=== PATIENT | female | born 1955 | race Caucasian/White ===

== ENCOUNTER → 2023-10-26 16:33 | Outpatient (REF) | payer MEDICARE, SELFPAY | LOC: PAVMRI 16:33 | PROVIDERS: ATTENDING PHYSICIAN Physical Medicine & Rehabilitation; FAMILY PHYSICIAN Internal Medicine | DX: M54.14 Radiculopathy, thoracic region (principal) | CPT/HCPCS: 72146 ==

== ENCOUNTER → 2023-12-22 16:21 | Outpatient (REF) | payer MEDICARE, SELFPAY | LOC: PAVMRI 16:21 | PROVIDERS: ATTENDING PHYSICIAN Physician Assistant Surgical; FAMILY PHYSICIAN Internal Medicine | DX: M79.661 Pain in right lower leg (principal); M25.571 Pain in right ankle and joints of right foot | CPT/HCPCS: 73718; 73721 ==

== ENCOUNTER → 2024-03-15 14:17 | Outpatient (REF) | payer MEDICARE, SELFPAY | LOC: WDC 14:17 | PROVIDERS: ATTENDING PHYSICIAN Surgery; FAMILY PHYSICIAN Internal Medicine | DX: Z12.31 Encounter for screening mammogram for malignant neoplasm of breast (principal) | CPT/HCPCS: 77063; 77067 ==

== ENCOUNTER → 2024-10-04 15:29 | Outpatient (REF) | payer MEDICARE, SELFPAY | LOC: MRI 3T 15:29 | PROVIDERS: ATTENDING PHYSICIAN Surgery; FAMILY PHYSICIAN Internal Medicine | DX: R92.2 Inconclusive mammogram (principal); D05.01 Lobular carcinoma in situ of right breast | CPT/HCPCS: 77049; A9585 ==

== ENCOUNTER → 2024-10-17 14:24 | Outpatient (REF) | payer MEDICARE, SELFPAY | LOC: WDC 14:24 | PROVIDERS: ATTENDING PHYSICIAN Nurse Practitioner Adult Health; FAMILY PHYSICIAN Internal Medicine | DX: R92.8 Other abnormal and inconclusive findings on diagnostic imaging of breast (principal) | CPT/HCPCS: 76642 ==

== ENCOUNTER → 2024-12-14 10:44 | Outpatient (REF) | payer MEDICARE, SELFPAY | LOC: PAVMRI 10:44 | PROVIDERS: ATTENDING PHYSICIAN Nurse Practitioner Adult Health; FAMILY PHYSICIAN Internal Medicine | DX: R92.8 Other abnormal and inconclusive findings on diagnostic imaging of breast (principal) | CPT/HCPCS: 88305; 19085; 77021; 88341; 88342; A4648; A9585 ==

== ENCOUNTER → 2025-03-21 14:54 | Outpatient (REF) | payer MEDICARE, SELFPAY | LOC: WDC 14:54 | PROVIDERS: ATTENDING PHYSICIAN Surgery; FAMILY PHYSICIAN Internal Medicine | DX: Z12.31 Encounter for screening mammogram for malignant neoplasm of breast (principal) | CPT/HCPCS: 77063; 77067 ==

== ENCOUNTER → 2025-03-28 09:19 | Outpatient (REF) | payer MEDICARE, SELFPAY | LOC: WDC 09:19 | PROVIDERS: ATTENDING PHYSICIAN Surgery; FAMILY PHYSICIAN Internal Medicine | DX: R92.8 Other abnormal and inconclusive findings on diagnostic imaging of breast (principal) | CPT/HCPCS: 76642 ==

== ENCOUNTER 2025-06-13 07:36 | Emergency (ER) | payer MEDICARE, SELFPAY ==
[2025-06-13 07:45] VITALS: BP 141/98
[2025-06-13 08:04] VITALS: BMI 33.3
[2025-06-13 08:12] VITALS: BP 138/83
--- NOTE | 2025-06-13 08:27 | ED.GENMED ---
History of Present Illness
General
Chief Complaint: Chest Pain
Time Seen by Provider: 06/13/25 08:17
History of Present Illness
History of Present Illness:
Tata is a 70F with PMH of T2DM, GERD, HTN, HLD who presents this morning with chest pain that woke her up from sleep around 6AM. Reports that the pain comes and goes and feels like pressure in the middle of her chest. Denies any radiation, no SOB,
nausea, vomiting, SOB, abdominal pain, headaches. Has had a similar pain before and that it has been occuring more often since switching to pepcid at night.
Past History
Past History
ED Past Medical History: GERD and Other (Sleep apnea)
Social History
Tobacco: Non-smoker
Alcohol: None
Drug: None
Personal:
Living: with family
Phy Exam
General Physical Exam
General Presentation: well appearing and no apparent distress
General Skin: warm and dry
General Habitus: normal
General Mental: alert
General Hydration: appears well hydrated
ENT Exam
ENT Exam: EOMI, pharynx normal, neck supple and normocephalic
Eye Exam
Eye Exam: PERRL, cornea clear and conjunctiva normal
Cardiovascular Exam
Cardiovascular Exam: regular rate/rhythm, no edema, no murmur and normal peripheral pulses
Pulmonary Exam
Pulmonary Exam: lungs clear, no respiratory distress, no rales, no crackles, no rhonchi, no stridor, no wheezing and no cough
Gastrointestinal Exam
Gastrointestinal Exam: normal bowel sounds, non tender, soft, no organomegaly, no pulsatile mass and non distended
Neurological Exam
Neurological Exam: alert, oriented x3, no motor deficits and speech normal
Musculoskeletal Exam
Musculoskeletal Exam: full ROM and no edema
Skin Exam
Skin Exam: normal color, warm/dry, no rash and no petechia
Psychiatric Exam
Psychiatric Exam: normal mood/affect
Scores
Heart Score for Chest Pain Patients
STEMI patient?: No
History: Slightly or Non-Suspicious
ECG: Normal
Age: >/= 65 years
Risk Factors: 1 or 2 Risk Factors
Troponin: </= Normal Limit
Heart Score for Chest Pain Patients: 3
Heart Score Risk: 2.5% MACE over next 6 weeks
Course
Orders/Labs/Results
Orders:
Orders
06/13/25 07:38
Electrocardiogram (*1) Urgent
Reason for Study: Chest Pain
06/13/25 07:39
EKG- Treatment ONCE
06/13/25 08:15
Complete Blood Count/With Diff Urgent
Comprehensive Metabolic Panel Urgent
Troponin I Urgent
06/13/25 08:33
Aspirin Chewable [Low Strength Aspirin] 81 mg PO NOW STA
06/13/25 08:34
CR Chest - 2 Views Urgent
Comment:
Reason For Exam: chest pain
06/13/25 09:17
Mag Hydrox/Al Hydrox/Simeth [Maalox] 30 ml Phenobarb/Hyoscy/Atropine/Scop [] 10 ml PO NOW
06/13/25 09:38
Mag Hydrox/Al Hydrox/Simeth [Maalox] 30 ml .ROUTE .STK-MED ONE
Phenobarb/Hyoscy/Atropine/Scop [] 10 ml .ROUTE .STK-MED ONE
06/13/25 09:55
Troponin I Urgent
06/13/25 08:15
06/13/25 08:15
Vital Signs
Initial and Last Documented VS:
Initial Vital Signs
Temp Pulse Resp BP Pulse Ox
36.9 C 82 16 141/98 98
06/13/25 07:45 06/13/25 07:45 06/13/25 07:45 06/13/25 07:45 06/13/25 07:45
Last Documented Vital Signs
Temp Pulse Resp BP Pulse Ox
36.9 C 74 11 143/88 100
06/13/25 07:45 06/13/25 09:00 06/13/25 09:00 06/13/25 09:00 06/13/25 09:37
Greenhouse Manager consulted with Physician
Greenhouse Manager consulted with physician?: Yes
Name of Physician Consulted: Serjio
MDM/Problems Addressed
Differential Diagnosis Includes:
ACS, GERD, unspecified chest pain, anxiety, MSK
Lab work unremarkable. Troponin 1 <0.012. Trop 2 at 4 hours from symptom onset also negative. CXR on my review and per radiology report unremarkable. EKG with no changes from previous. Given GI cocktail with improvement in symptoms. Chest pain
likely GERD related. Will discharge from the ER and have patient follow up with PCP. Prescription for protonix sent to pharmacy as patient does not feel omeprazole is working to control GERD. Tums PRN.
*Radiology
Radiology exam reviewed: radiology read reviewed
*Pulse Oximetry
SaO2: 98
Oxygen Mode of Delivery: Room air
Patient hypoxic: no
*EKG
Interpreted by ED Provider?: Yes
Interpretation: normal
Comparison EKG: no changes
*Supervisor [employer] Interpretation
Rate: normal
Interpretation: normal
Rhythm: sinus
*Critical Care Note
Total Time (30-74mins, 75-104mins- exclusive of procedures): Not Applicable
ED Attending Note
-
Portions of this chart may have been created with voice recognition software.� Occasional wrong word or��sound alike� substitutions may have occurred due to the inherent limitations of voice recognition software.
Discharge Plan
Departure
Patient Disposition: Home (Routine Discharge)
Date of Disposition: 06/13/25
Time of Disposition: 10:33
Patient with high blood pressure during this ER visit?: No
Discharge Problem:
Chest pain due to GERD, Chronic GERD
Instructions: Acid Reflux and GERD in Adults (DC), Chest Pain PCP Follow Up
Prescriptions:
New
pantoprazole [Protonix] 40 mg tablet,delayed release (DR/EC)
40 mg PO DAILY Qty: 14 0RF
No Action
cholecalciferol (vitamin D3) [Vitamin D3] 1,000 UNIT tablet
1,000 unit PO QPM
vilazodone [Viibryd] 40 MG tablet
40 mg PO QPM
Ativan:
1 tab PO Q8HPRN PRN (Reason: anxiety)
omeprazole 40 MG capsule,delayed release(DR/EC)
40 mg PO QPM
aspirin 81 MG tablet,delayed release (DR/EC)
81 mg PO DAILY
ibuprofen 200 MG tablet
800 mg PO Q8HPRN PRN (Reason: pain)
docosahexaenoic acid-epa 1 CAP capsule
1 cap PO QPM
Hydrocodone 5mg/500mg Acetaminophen
1 tab PO .SINGLE DOSE NOW
oxycodone-acetaminophen 5 MG/325 MG tablet
1 tab PO Q4HPRN PRN (Reason: pain) Qty: 11 0RF
Referrals:
Mika Way I., DO [Family Provider, Internal Medicine]
Activity Restrictions/Additional Instructions:
Follow up with PCP or GI doctor. A prescription for protonix has been sent to your pharmacy. You may take this instead of omeprazole. May take tums as needed.
Interventions
Interventions:
*Risk Screen - Suicide Last Done: 06/13/25 07:45
*General Assessment Last Done: 06/13/25 08:16
*Neglect/Abuse Screening Last Done: 06/13/25 07:45
*ED- Fall Risk Assessment Last Done: 06/13/25 08:16
*ED COVID-19 Vaccine History Last Done: 06/13/25 08:16
*ED Influenza Vaccine History Last Done: 06/13/25 08:16
ED- Cardiac Assessment Last Done: 06/13/25 08:25
Discharge Date and Time
Print Language: CHINESE
[2025-06-13 08:39] LABS: ALT (SGPT) 21 U/L (0-35); AST (SGOT) 28 U/L (14-36); Albumin 4.3 g/dl (3.5-5.0); Alkaline Phosphatase 56 U/L (38-126); Blood Urea Nitrogen 12 mg/dl (7-17); Calcium 9.8 mg/dl (8.4-10.2); Carbon Dioxide 28 mmol/L (22-30); Chloride 103 mmol/L (98-107); Estimated Creatinine Clearance 72 ml/min; Glucose 99 mg/dl (70-99); Potassium 4.1 mmol/L (3.5-5.1); Sodium 137 mmol/L (135-145); Total Protein 6.7 g/dl (6.3-8.2); eGFR > 60.00
[2025-06-13] MEDS: LOW STRENGTH ASPIRIN 81 MG PO (08:44)
[2025-06-13 08:52] LABS: Troponin I < 0.012 ng/ml
[2025-06-13 09:00] VITALS: BP 143/88
[2025-06-13 09:41] LABS: Hematocrit 40.3 % (37.0-47.0); Hemoglobin 13.8 g/dL (12.0-16.0); Mean Corp Hgb Conc. 34.2 g/dL (33.0-37.0); Mean Corpuscular Volume 89.4 fL (81.0-99.0); Platelet Count 275 10^3/uL (130-400); Red Cell Dist. Width 13.9 % (11.5-14.5)
[2025-06-13] MEDS: MAALOX 30 PO (09:41)
[2025-06-13 09:42] LABS: Nucleated Red Blood Cells % 0 %
[2025-06-13 10:00] VITALS: BP 142/92
[2025-06-13 10:25] LABS: Troponin I < 0.012 ng/ml
[2025-06-13 11:00] VITALS: BP 133/91
== END 2025-06-13 11:45 | disposition home or self-care (01) ==
LOC: EMR 07:36
PROVIDERS: Surgery Trauma Surgery; EMERGENCY PHYSICIAN Emergency Medicine; FAMILY PHYSICIAN Internal Medicine
DX: K21.9 Gastro-esophageal reflux disease without esophagitis (principal); E11.9 Type 2 diabetes mellitus without complications; E78.5 Hyperlipidemia, unspecified; I10 Essential (primary) hypertension; G47.30 Sleep apnea, unspecified
CPT/HCPCS: 99285; 71046; 80053; 84484; 85025; 93005